=== PATIENT | female | born 1975 | race Caucasian/White ===

== ENCOUNTER 2017-04-23 16:48 | Emergency (ER) | payer OTHER ==
[2017-04-23 17:38] LABS: Hematocrit 37.8 % (37.0-47.0); Hemoglobin 12.8 gm/dL (12.5-16.0); Mean Cell Volume 100.5 fl (78-100); Mean Corpuscular Hgb Conc 33.9 g/dl (32-36); Neutrophil # 5.9 K/mm3 (1.3-6.0); Neutrophil % 64.9 % (42-75.0); Platelet Count 298 K/mm3 (150-450); Red Blood Count 3.76 M/mm3 (4.2-5.4); Red Cell Distribution Width 11.9 % (11.5-14.0); White Blood Count 9.1 K/mm3 (4.0-10.5)
[2017-04-23] MEDS ORDERED: NORMAL SALINE 1,000 ML IV ONE (17:44)
--- NOTE | 2017-04-23 17:50 | ERNOTE ---
Medical Problem HPI - Narrative Date of Service: 04/23/17 - General Chief Complaint: General Assessment Time Seen by Provider: 04/23/17 17:11 Source: patient Exam Limitations: no limitations - Immun/Allergies/Home Medications Immunizations: IMMUNIZATION HX Immunizations Up to Date No History of Influenza Vaccine No Hx Pneumococcal Vaccination No Allergies/Adverse Reactions: Allergies hydrocodone Allergy (Verified 11/26/15 01:24) Home Medications: HOME MEDICATIONS lamoTRIgine [Lamictal] 150 mg PO HS 11/26/15 [Last Taken Unknown] Disulfiram [Antabuse] 500 mg PO DAILY #30 tablet 11/27/15 [Last Taken Unknown] LORazepam [Ativan] 1 mg PO TID PRN #270 tablet 11/27/15 [Last Taken Unknown] Naltrexone HCl [ReVia] 100 mg PO DAILY #30 tab 11/27/15 [Last Taken Unknown] Nicotine [Nicoderm] 21 mg TD Q24H #45 patch.td24 11/27/15 [Last Taken Unknown] Topiramate [Topamax] 50 mg PO DAILY #30 tab 11/27/15 [Last Taken Unknown] Dextroamphetamine/Amphetamine [Adderall 30 mg Tablet] 30 mg PO BID 04/23/17 [ Last Taken Unknown] Escitalopram Oxalate [Lexapro] 20 mg PO DAILY 04/23/17 [Last Taken Unknown] - History of Present History Narrative: Pt. comes in with c/o chest pain for several hours, pt is unable to give me a specific time. When asked pt. denies 'Bee sting" and states that she wanted to make sure someone was going to bring her to the er as she is homeless and afraid that the police were just going to drop her off in town somewhere not safe. Pt. denies any fevers, vomiting, diarrhea, SOB, alleviating factors, aggravating factors, or prehospital treatment. Pt. does also state that she has recently been taking pills that she has no idea what they are but are not taking her prescribed meds. Review of Systems - Review of Systems Constitutional: Present: no symptoms reported. Absent: recent illness, fever, chills, weakness, fatigue, malaise EYE: Present: no symptoms reported ENT: Present: no symptoms reported Respiratory: Present: no symptoms reported. Absent: shortness of breath, cough , wheezing Cardiology: Present: chest pain. Absent: palpitations, edema Gastrointestinal/Abdominal: Present: nausea. Absent: vomiting, diarrhea, abdominal pain, drinking less Genitourinary: Present: no symptoms reported Musculoskeletal: Present: no symptoms reported. Absent: back pain, joint pain Skin: Present: no symptoms reported. Absent: rash, change in hair/nails Neurological: Present: anxiety. Absent: numbness, tingling Endocrine: Present: no symptoms reported All Other Systems: All systems neg except as marked - Patient's Past Medical History Patient History - Medical: Anxiety, Depression Patient History - Cardiac/Respiratory: No pertinent hx Patient History - Cancer: No Hx of Cancer Patient History - Surgical Procedures: Patient History - Other: None LMP (females 10-50): 3 weeks ago - Social History Living Situations: home Psych History: Hx of Anxiety, Hx of Depression, Hx of Suicide Attempt, Current tx/ever been on anti-depressants or anti-anxiety meds Smoking Status: Current every day smoker - Immunizations Immunizations Up to Date: No Hx Pneumococcal Vaccination: No History of Influenza Vaccine: No Physical Exam - Physical Exam General Appearance: Present: wd/wn, alert, no apparent distress Head Exam: Present: normal inspection, no evidence of injury Eye Exam: Normal inspection: bilateral, PERRL: bilateral, EOMI: bilateral Ears, Nose, Throat: Present: normal ENT inspection, normal pharynx Neck: Present: normal inspection, nontender, supple, full range of motion. Absent: lymphadenopathy (R), lymphadenopathy (L) Respiratory: Present: no respiratory distress, normal breath sounds, no accessory muscle use, chest nontender, lungs clear. Absent: rales, rhonchi, wheezing Cardiovascular/Chest: Present: regular rate, rhythm, no murmur, normal peripheral pulses Gastrointestinal/Abdominal: Present: normal bowel sounds, nontender, nondistended, soft, no organomegaly Back Exam: Present: normal inspection Extremity Exam: Present: normal inspection, non-tender, normal range of motion, no edema Neurological Exam: Present: alert, oriented, other - pt. with hallucinations and delusions, agitated Skin Exam: Present: normal color, warm/dry. Absent: pallor, skin rash ED Progress - Date and Time Seen: Date and Time: 04/23/17 19:29 Pt. is stable medically but has acute psychosis and is unable to make safe decisions for herself and therefore is a danger to herself. Discussed with Dr Serge crow he recommends admitting her to a psychiatric facility. 04/23/17 19:30 - Results and Orders Patient's Lab Results:: I have reviewed the patient's lab results. Results and Orders: Laboratory Results - last 24 hr 04/23/17 04/23/17 04/23/17 17:30 17:30 17:49 WBC 9.1 RBC 3.76 L Hgb 12.8 Hct 37.8 MCV 100.5 H MCH 34.0 H MCHC 33.9 RDW 11.9 Plt Count 298 MPV 9.0 Immature Gran % (Auto) 0.30 Immature Gran # (Auto) 0.03 Neutrophils % 64.9 Lymphocytes % 24.8 Monocytes % 8.1 Eosinophils % 1.6 Basophils % 0.3 Nucleated RBC % 0.0 Neutrophils # 5.9 Lymphocytes # 2.3 Monocytes # 0.7 Eosinophils # 0.2 Absolute Basophils 0.0 Sodium 143 H Plasma Sodium 143 H Potassium 3.6 Chloride 108 H Carbon Dioxide 27.6 Anion Gap 11.0 BUN 15 Creatinine 0.81 Est GFR (Non-Af Amer) 82 BUN/Creatinine Ratio 18.5 Random Glucose 93 Calcium 8.8 Calcium Adj for Albumin 8.9 Total Bilirubin 0.2 AST 19 ALT 26 Alkaline Phosphatase 56 Troponin I Less than 0.017 Total Protein 6.7 Albumin 3.5 TSH 1.808 Serum HCG, Qual Negative Urine Color Urine Appearance Urine pH Ur Specific Henderson Urine Protein Urine Glucose (UA) Urine Ketones Urine Blood Urine Nitrate Urine Bilirubin Urine Urobilinogen Ur Leukocyte Esterase Urine RBC Urine WBC Ur Epithelial Cells Amorphous Sediment Urine Bacteria Urine Culture Comments Salicylates 3.3 Urine Opiates Screen Acetaminophen Less than 0.2 L Barbiturate Screen Ur Phencyclidine Scrn Urine Amphetamine U Benzodiazepines Scrn Urine Cocaine Screen Urine Marijuana (THC) Ethyl Alcohol Less than 3.0 04/23/17 04/23/17 18:47 18:47 WBC RBC Hgb Hct MCV MCH MCHC RDW Plt Count MPV Immature Gran % (Auto) Immature Gran # (Auto) Neutrophils % Lymphocytes % Monocytes % Eosinophils % Basophils % Nucleated RBC % Neutrophils # Lymphocytes # Monocytes # Eosinophils # Absolute Basophils Sodium Plasma Sodium Potassium Chloride Carbon Dioxide Anion Gap BUN Creatinine Est GFR (Non-Af Amer) BUN/Creatinine Ratio Random Glucose Calcium Calcium Adj for Albumin Total Bilirubin AST ALT Alkaline Phosphatase Troponin I Total Protein Albumin TSH Serum HCG, Qual Urine Color Yellow Urine Appearance Slightly cloudy Urine pH 7.5 Ur Specific Henderson 1.010 Urine Protein Negative Urine Glucose (UA) Negative Urine Ketones Negative Urine Blood Negative Urine Nitrate Negative Urine Bilirubin Negative Urine Urobilinogen Normal Ur Leukocyte Esterase Negative Urine RBC None seen Urine WBC 0-5 Ur Epithelial Cells 5-10 H Amorphous Sediment Moderate - 2+ H Urine Bacteria None seen Urine Culture Comments No culture indicated Salicylates Urine Opiates Screen Negative Acetaminophen Barbiturate Screen Negative Ur Phencyclidine Scrn Negative Urine Amphetamine Negative U Benzodiazepines Scrn Negative Urine Cocaine Screen Negative Urine Marijuana (THC) Negative Ethyl Alcohol - Vital Signs Patient's Vital Signs:: I have reviewed the patient's vital signs. Vital Signs: Vital Signs 04/23/17 16:55 Temperature 37.2 C Pulse Rate 104 H Respiratory 17 Rate O2 Sat by Pulse 100 Oximetry - X-Ray X-Ray #1 X-Ray: chest Interpretation: Reviewed by me X-ray Comments: no consolidation, no atelactasis. - Progress/Reassessment Chief Complaint: General Assessment Progress:: Unchanged - Transfer of Care Physician Sign Out: Neli Martinez Receiving Physician: Yonas Weston Expected Disposition: Transfer Departure Clinical Impression: Psychosis Qualifiers: Psychosis type: schizoaffective disorder Schizoaffective disorder type: bipolar Qualified Code(s): F25.0 - Schizoaffective disorder, bipolar type - Departure Disposition: Other health care facility Condition: Good
[2017-04-23 17:58] LABS: ALT 26 U/L (19-67); AST 19 U/L (0-48); Albumin * 3.5 gm/dl (3.4-5.0); Alkaline Phosphatase * 56 U/L (50-170); BUN/Creatinine Ratio 18.5 (9.0-21.6); Bilirubin, Total 0.2 mg/dL (0.0-1.1); Blood Urea Nitrogen 15 mg/dL (3-23); Ca. Corrected For Albumin 8.9 mg/dL (8.4-10.2); Calcium * 8.8 mg/dL (7.9-10.9); Carbon Dioxide 27.6 mmol/L (24-32.6); Chloride 108 mmol/L (97-106); Glucose * 93 mg/dL (70-110); Potassium 3.6 mmol/L (3.4-4.6); Salicylate 3.3 mg/dL (2.8-20.0); Sodium 143 mmol/L (132-142); TSH * 1.808 uIU/mL (0.358-3.74); Total Protein 6.7 gm/dL (6.2-8.2); Troponin I Less than 0.017 ng/ml (0.00-0.10)
[2017-04-23 19:12] LABS: Urine Appearance Slightly Cloudy; Urine Bilirubin Negative (NEGATIVE); Urine Color Yellow
[2017-04-23 19:13] LABS: Cocaine Ur Negative (NEGATIVE); Urine Barbiturate Negative (NEGATIVE); Urine Benzodiazepines Negative (NEGATIVE); Urine Opiates Negative (NEGATIVE); Urine PCP Negative (NEGATIVE); Urine THC Negative (NEGATIVE)
[2017-04-23 19:16] LABS: Urine Blood Negative /ul (NEGATIVE); Urine Ketone Negative (NEGATIVE); Urine Nitrite Negative (NEGATIVE); Urine Protein Negative (NEGATIVE); Urine Urobilinogen Normal (NORMAL); Urine pH 7.5 pH (5.0-7.0)
[2017-04-23 19:17] LABS: Urine Amorphous Sediment Moderate - 2+ (NONE-FEW); Urine Bacteria None Seen; Urine RBC None Seen /hpf (0-5); Urine WBC 0-5 /hpf (0-5)
[2017-04-24] MEDS ORDERED: ACETAMINOPHEN 500 MG TABLET PO ONE (03:15)
[2017-04-24 08:50] VITALS: BP 112/72
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
== END 2017-04-24 10:58 | disposition home or self-care (01) ==
LOC: ER 16:48
DX: F25.0 Schizoaffective disorder, bipolar type (principal); F41.8 Other specified anxiety disorders
CPT/HCPCS: 36415; 71020; 80053; 80307; 81001; 84443; 84484; 84703; 85025; 93005; 99284; G0480; G0481